=== PATIENT | female | born 1950 | race Asian ===

== ENCOUNTER 2019-02-16 12:04 | Emergency (ER) | payer BC ==
[~2019-02-16] VITALS: Ht 152.4 cm; Wt 63.5 kg
[2019-02-16] MEDS ORDERED: LISI-603 PO (12:20)
[2019-02-16] MEDS ORDERED: ATOR20TA PO (12:20)
--- NOTE | 2019-02-16 13:43 | NUR ---
Patient discharged to home in stable conditon. Written and verbal after care instructions given to patient. Patient verbalizes understanding & compliance of instructions.
--- NOTE | 2019-02-16 13:43 | NUR ---
Crutches dispensed. Pt instructed on proper use of crutches. Patient able to demonstrate correct use of crutches.
== END 2019-02-16 13:45 | disposition home or self-care (01) ==
LOC: ER 12:04
DX: S93.402A Sprain of unspecified ligament of left ankle, initial encounter (principal); L03.116 Cellulitis of left lower limb; Z79.899 Other long term (current) drug therapy; X58.XXXA Exposure to other specified factors, initial encounter; Y93.89 Activity, other specified; Y92.89 Other specified places as the place of occurrence of the external cause; Y99.8 Other external cause status
CPT/HCPCS: 73610; A4663

== ENCOUNTER 2020-07-28 09:37 | Emergency (ER) | payer BC ==
[~2020-07-28] VITALS: Ht 152.4 cm; Wt 58.1 kg
[~2020-07-28 09:37] MED LIST: ATOR20TA PO; LISI20TA30 PO
[2020-07-28] MEDS ORDERED: LISINOPRIL 10 MG TABLET PO ONE (10:00)
[2020-07-28] MEDS ORDERED: METOPROLOL TARTRATE 50 MG TABLET PO ONE (10:00)
[2020-07-28 10:01] VITALS: BP 192/102
[2020-07-28] MEDS ORDERED: METOPROLOL SUCCINATE XL 25 MG TAB.SR.24H PO ONE (10:03)
[2020-07-28] MEDS ORDERED: METO25TA6 PO (10:06)
[2020-07-28] MEDS ORDERED: ACETAMINOPHEN ES 500 MG TABLET PO ONE (10:30)
[2020-07-28] MEDS ORDERED: VANCOMYCIN IV 1,000 MG in IV DEXTROSE 5% 250 ML IV ONE (10:30)
[2020-07-28] MEDS ORDERED: CEFTRIAXONE 1 G in IV DEXTROSE 5% 50 ML IV ONE (10:30)
[2020-07-28] MEDS ORDERED: VANCOMYCIN IV 200 ML ONE (10:37)
[2020-07-28] MEDS ORDERED: CEFTRIAXONE /D5W 50ML IVPB **ER PYXIS IV ONE (10:38)
[2020-07-28] MEDS ORDERED: ACETAMINOPHEN ES 500 MG TABLET ONE (10:39)
--- NOTE | 2020-07-28 11:11 | NUR ---
Applied Right colles splint, medium, secured with elastic bandage, PMS intact.
[2020-07-28] MEDS ORDERED: CEPH500C2 PO (12:24)
== END 2020-07-28 12:45 | disposition home or self-care (01) ==
LOC: ER 09:37
DX: L03.113 Cellulitis of right upper limb (principal); M15.9 Polyosteoarthritis, unspecified; I10 Essential (primary) hypertension; E78.5 Hyperlipidemia, unspecified; Z79.899 Other long term (current) drug therapy
CPT/HCPCS: 29125; 73130; 96365; 96367; 99284; J0696; J3370; A4663; A9150

== ENCOUNTER 2020-07-29 07:28 | Emergency (ER) | payer BC ==
[~2020-07-29] VITALS: Ht 152.4 cm; Wt 61.2 kg
[~2020-07-29 07:28] MED LIST changes: +CEPH500C2 PO; +METO25TA6 PO
--- NOTE | 2020-07-29 07:40 | NUR ---
Dr Grullon at bedside for MSE.
[2020-07-29] MEDS ORDERED: VANCOMYCIN IV 1,000 MG in IV DEXTROSE 5% 250 ML IV ONE (07:45)
[2020-07-29] MEDS ORDERED: VANCOMYCIN IV 200 ML ONE (07:55)
--- NOTE | 2020-07-29 09:42 | NUR ---
Patient has been cleared for discharge. No adverse reactions noted from IV ATB administered during and after the infusion. Patient able to move left hand and fingers, with sensations being intact. Pt is cleared for discharge. Written and verbal after care instructions given. Patient verbalizes understanding of instructions. Stressed follow up with PCP or return to ER for worsening s/s. Patient discharged to home in stable condition.
[2020-07-29 09:46] VITALS: BP 162/78
== END 2020-07-29 09:47 | disposition home or self-care (01) ==
LOC: ER 07:29
DX: L03.113 Cellulitis of right upper limb (principal); I10 Essential (primary) hypertension; E78.5 Hyperlipidemia, unspecified; Z79.899 Other long term (current) drug therapy
CPT/HCPCS: 96365; 99284; J3370; A4663